=== PATIENT | female | born 1955 | race Caucasian/White ===

== ENCOUNTER 2018-12-28 05:54 | Day surgery (SDC) | payer BC ==
--- NOTE | 2018-12-25 10:26 | RAD REPORT ---
EXAM DESCRIPTION: RAD - Chest Pa And Lat (2 Views) - 12/25/2018 10:13 am CLINICAL HISTORY: Preop chest, pending breast lumpectomy COMPARISON: None. TECHNIQUE: PA and lateral views of the chest were obtained. FINDINGS: The lungs are clear. Heart size is normal and central vasculature is within normal limit s. No pleural effusion or pneumothorax seen. No acute bone findings. Endplate spurs are present thr oughout the thoracic spine. Several mid and lower thoracic disc levels show loss in height. Scoliotic curvature in the spine is present but not fully assessed. No aortic abnormality. IMPRESSION: No acute cardiopulmonary process. Prominent thoracic spine degenerative change.
[2018-12-25 10:42] LABS: Absolute Lymphocytes (CBC) 1.3 K/uL (0.7-4.9); Eosinophils % 12.2 % (0-4.4); Hematocrit 43.6 % (36.0-45.0); Lymphocytes % 21.5 % (15.3-44.8); MPV 7.1 fL (7.6-11.3); Monocytes % 8.1 % (3.3-12.3); RBC Red Blood Cell Count 4.38 M/uL (3.86-4.86)
[2018-12-25 11:15] LABS: Potassium 5.4 mmol/L (3.5-5.1)
--- NOTE | 2018-12-25 14:01 | EKG ---
Test Date: 2018-12-25 Test Time: 09:55:57 Die Welder: EULOGIO MEASUREMENT RESULTS: Intervals: Rate: 65 DE: 144 QRSD: 84 QT: 422 QTc: 438 [place]: P: 48 DE: 144 QRS: 3 T: 47 INTERPRETIVE STATEMENTS: Normal sinus rhythm Low voltage QRS Borderline ECG No previous ECG available for comparison Electronically Signed On 12-25-18 14:01:15 CDT by Ramesh Lucas
--- OUTSIDE RECORDS SUMMARY | 2018-12-28 05:59 | XMS REPORT | Clinical Summary ---
:1955 Author Organization [facility] Address [address] [place] [address] Care Team Providers Name Role Phone Cora Seals MD Primary Care Provider Allergies No Known Allergies Medications Medication Sig Dispensed Refills Start Date End Date Status levothyroxine Take 112 mcg by 0 Active (SYNTHROID, LEVOXYL) mouth every 112 mcg tablet morning. omeprazole (PriLOSEC) Take 20 mg by 0 Active 20 MG capsule mouth daily. sucralfate (CARAFATE) 1 Take 1 g by mouth 0 Active gram tablet 2 (two) times a day. estradiol (ESTRACE) APPLY THREE TIMES 42.5 g 2 11/13/2017 Active 0.01 % (0.1 mg/gram) A WEEK AT vaginal cream NGHT,USE FINGER TO APPLY DIRECTLY TO URETHRA, DO NOT USE APPLICATOR. 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 Last Filed Vital Signs Not on file Plan of Treatment Health Maintenance Due Date Last Done Comments BREAST CANCER SCREENING 2007 COLONOSCOPY SCREENING 2007 SHINGLES VACCINES (#1) 2007 INFLUENZA VACCINE 02/11/2019 Results Not on fileafter 12/27/2017 Advance Directives Patient has advance care planning documents on file. For more information, please contact:Bertin Benitez[address] [place] [address]
--- OUTSIDE RECORDS SUMMARY | 2018-12-28 05:59 | XMS REPORT ---
:1955 Author Organization [facility] Address [address] [place] [address] [address] [place] [address] Care Team Providers Name Role Phone Unavailable Unavailable Unavailable Payers Payer Name Policy Type Policy Number Effective Date Expiration Date Problems This patient has no known problems. Allergies, Adverse Reactions, Alerts Allergy Allergy Status Severity Reaction(s) Onset Inactive Treating Comments Name Type Date Date Clinician No Known DA Active U 2013-10 Allergies -11 00:00:0 0 Medications This patient has no known medications. Results Test Description Test Time Test Comments Text Results Atomic Results Result Comments SURGICAL 2018-12-01 RUN DATE: SPECIMENS 07:43:00 12/01/18 [facility] *LIVE* PAGE 1 RUN TIME: 742 Specimen Inquiry RUN USER: INTERFACE PATIENT: MARCK LYLE LOC: ARMANDO U #: [id number] AGE/SX: 63/F ROOM: RE11/25/18[facility] DR: Cora Seals MD : 59 BED: DIS: STATUS: PRE REF TLOC: SPEC #: [id number] RECD: 11/26/18 STATUS: UNRULY REQ # : [id number] SARITA: 11/26/[address]: Cora Seals MD ENTERED: 11/28/18 SP TYPE: SURG SPEC OTHR DR: No Primary or Family PhysicianORDERED: LEVEL 4 CODES: [id number] - BREAST, NOS COPIES TO: No Primary or Family Physician Cora Seals MD [address] [place] [address] [email or web address] PROCEDURES: GM LEVEL 4 (Incomplete) TISSUES: 1. BREAST, NOS - Breast, left, 3:00, 6 cm FN, core bx. FINAL DIAGNOSIS Breast, left, 3:00, 6 cm FN, core bx.: Infiltrating ductal carcinoma, Roderick grade 2, 0.8 cm; cribriform ductal carcinoma in situ, intermediate nuclear grade; ancillary studies to follow (report to follow). GROSS AND MICROSCOPIC GROSS EXAMINATION: Received is/are the specimen/s designated with the appropriate dimensions and block designation: 1. Breast, left, 3:00, 6 cm FN, core bx.: 4 segments of pink-avila tissue, measuring up to 1.5 cm. in greatest dimension each. MICROSCOPIC EXAMINATION: The biopsy reveals infiltrating ductal carcinoma that is characterized by infiltrating nests, cords, and atypical tubular structures in a background of desmoplastic response. The neoplastic cells show moderate nuclear atypia and increased mitoses. Also present are small foci of cribriform ductal carcinoma in situ. CONTINUED ON NEXT PAGE RUN DATE: 12/01/18 [facility] *LIVE* PAGE 2 RUN TIME: 742 Specimen Inquiry RUN USER: INTERFACE SPEC #: [id number] PATIENT: AMRCK LYLEL #[id number] (Continued) POST-OP DIAGNOSIS Ultraclip coil PRE-OP DIAGNOSIS Malignant appearing mass 3:00 left breast REVIEWED BY: MR Signed SIGNATURE ON FILE Carl Allison MD 12/01/18 0743 END OF REPORT SURGICAL 2018-12-01 RUN DATE: SPECIMENS 07:43:00 12/04/18 [facility] *LIVE* PAGE 1 RUN TIME: 834 Specimen Inquiry RUN USER: INTERFACE PATIENT: MARCK LYLE LOC: ARMANDO #: [id number] AGE/SX: 63/F ROOM: RE11/25/18[facility] DR: Cora Seals MD : 59 BED: DIS: STATUS: PRE REF TLOC: SPEC #: [id number] RECD: 11/26/18 STATUS: UNRULY ARTEAGA # : [id number] SARITA: 11/26/18 [facility] DR: Cora Seals MD ENTERED: 11/28/18 SP TYPE: SURG SPEC OTHR DR: No Primary or Family PhysicianORDERED: GM LEVEL 4 CODES: [id number] - BREAST, NOS COPIES TO: No Primary or Family Physician Cora Seals MD [address] [place] [address] [email or web address] PROCEDURES: GM LEVEL 4 (Incomplete) TISSUES: 1. BREAST, NOS - Breast, left, 3:00, 6 cm FN, core bx. ADDENDUM FINDINGS Addendum #1 Entered: 12/03/18 ER: POSITIVE Tumor Stained: 92% Intensity: 3+ Jair Score: 8 MI: POSITIVE Tumor Stained: 100% Intensity: 3+ Jair Score: 8 Her2/luke: EQUIVOCAL Score: 2+ FISH is pending. Ki-67: LOW Tumor Stained: 8% Intensity: 3+ p53: NEGATIVE Tumor Stained: 0% Intensity: 0 REFERENCE RANGES: ER > 1%-Positive; < 1%-Negative. MI > 1%-Positive; < 1%-Negative. Ki-67 < 10%-Low proliferative index; >=10% and <=20%-Intermediate proliferative index; > 20%-High proliferative index. p53 < 10%-Negative; >=10%-Positive. Her2/luke 2-1-Uurrhhbf; 8-ovpmjyupy-whfnxm FISH study; 3+-Positive. These tests were performed by IHC in conjunction with the [employer]/APERIPromiseUP. The material was formalin fixed (6-72 hours), paraffin embedded. While some antibodies have not been approved by the FDA, clearance/approval is not mandated. These antibodies are well documented and clinically accepted prognostic indicators. Known positive and negative CONTINUED ON NEXT PAGE RUN DATE: 12/04/18 [facility] *LIVE* PAGE 2 RUN TIME: 834 Specimen Inquiry RUN USER: INTERFACE SPEC #: [id number] PATIENT: MARCK LYLE #[id number] (Continued) ADDENDUM FINDINGS (Continued) control tissue shows appropriate staining. Above prognostic marker results to be used in context with clinical/ pathological findings. The College [employer] [place] [employer] (CAP) and the [place] Society of Clinical Oncology (ASCO) joint guideline on testing for Her2/Luke status in invasive breast cancer is used to determine if FISH studies are necessary. Please see outside consultation report for clone/ intended use, vendor, staining pattern, and QC status. Addendum Signed SIGNATURE ON FILE Jermaine Escoto DO 12/04/18 0835 FINAL DIAGNOSIS Breast, left, 3:00, 6 cm FN, core bx.: Infiltrating ductal carcinoma, Roderick grade 2, 0.8 cm; cribriform ductal carcinoma in situ, intermediate nuclear grade; ancillary studies to follow (report to follow). GROSS AND MICROSCOPIC GROSS EXAMINATION: Received is/are the specimen/s designated with the appropriate dimensions and block designation: 1. Breast, left, 3:00, 6 cm FN, core bx.: 4 segments of pink-avila tissue, measuring up to 1.5 cm. in greatest dimension each. MICROSCOPIC EXAMINATION: The biopsy reveals infiltrating ductal carcinoma that is characterized by infiltrating nests, cords, and atypical tubular structures in a background of desmoplastic response. The neoplastic cells show moderate nuclear atypia and increased mitoses. Also present are small foci of cribriform ductal carcinoma in situ. POST-OP DIAGNOSIS Ultraclip coil PRE-OP DIAGNOSIS Malignant appearing mass 3:00 left breast REVIEWED BY: MR CONTINUED ON NEXT PAGE RUN DATE: 12/04/18 [facility] *LIVE* PAGE 3 RUN TIME: 08 Specimen Inquiry RUN USER: INTERFACE SPEC #: [id number] PATIENT: MARCK LYLEL #[id number] (Continued) Signed SIGNATURE ON FILE Carl Allison MD 12/01/18 0743 END OF REPORT SURGICAL 2018-12-01 RUN DATE: SPECIMENS 07:43:00 12/10/18 [facility] *LIVE* PAGE 1 RUN TIME: 806 Specimen Inquiry RUN USER: INTERFACE PATIENT: MARCK LYLE LOC: SteveHELENE U #: [id number] AGE/SX: 63/F ROOM: RE11/25/18REG DR: Cora Seals MD : 59 BED: DIS: STATUS: DEP REF TLOC: SPEC #: [id number] RECD: 11/26/18 STATUS: UNRULY ARTEAGA # : [id number] SARITA: 11/26/[address]: Cora Seals MD ENTERED: 11/28/18 SP TYPE: SURG SPEC OTHR DR: No Primary or Family PhysicianORDERED: GM LEVEL 4 CODES: [id number] - BREAST, NOS COPIES TO: No Primary or Family Physician Cora Seals MD [address] [place], [place] [id number] [email or web address] PROCEDURES: GM LEVEL 4 (Incomplete) TISSUES: 1. BREAST, NOS - Breast, left, 3:00, 6 cm FN, core bx. ADDENDUM FINDINGS Addendum #2 Entered: 12/09/18 Her2/luke by FISH is negative (unamplified). Please see attached outside consultation report for complete details. Addendum Signed SIGNATURE ON FILE Carl Allison MD 12/10/18 0807 Addendum #1 Entered: 12/03/183414 ER: POSITIVE Tumor Stained: 92% Intensity: 3+ Jair Score: 8 MI: POSITIVE Tumor Stained: 100% Intensity: 3+ Jair Score: 8 Her2/luke: EQUIVOCAL Score: 2+ FISH is pending. Ki-67: LOW Tumor Stained: 8% Intensity: 3+ p53: NEGATIVE Tumor Stained: 0% Intensity : 0 REFERENCE RANGES: ER > 1%-Positive; < 1%-Negative. MI > 1%-Positive; < CONTINUED ON NEXT PAGE RUN DATE: 12/10/18 [facility] *LIVE* PAGE 2 RUN TIME: 806 Specimen Inquiry RUN USER: INTERFACE SPEC #: [id number] PATIENT: MARCK LYLE #[id number] (Continued) ADDENDUM FINDINGS (Continued) 1%-Negative. Ki-67 < 10%- Low proliferative index; >=10% and <=20%-Intermediate proliferative index; > 20%-High proliferative index. p53 < 10%-Negative; >=10%-Positive. Her2/luke 4-0-Tmuodsmz; 8-sumsebbbp-gsxtva FISH study; 3+-Positive. These tests were performed by IHC in conjunction with the [employer]/APERIO. The material was formalin fixed (6-72 hours), paraffin embedded. While some antibodies have not been approved by the FDA, clearance/approval is not mandated. These antibodies are well documented and clinically accepted prognostic indicators. Known positive and negative control tissue shows appropriate staining. Above prognostic marker results to be used in context with clinical/pathological findings. The [employer] [place] [employer]ologists (CAP) and the [place] Society of Clinical Oncology (ASCO) joint guideline on testing for Her2/Luke status in invasive breast cancer is used to determine if FISH studies are necessary. Please see outside consultation report for clone/intended use, vendor, staining pattern, and QC status. Addendum Signed SIGNATURE ON FILE Jermaine Escoto 0835 FINAL DIAGNOSIS Breast, left, 3:00, 6 cm FN, core bx.: Infiltrating ductal carcinoma, [place] grade 2, 0.8 cm; cribriform ductal carcinoma in situ, intermediate nuclear grade; ancillary studies to follow (report to follow). GROSS AND MICROSCOPIC GROSS EXAMINATION: Received is/are the specimen/s designated with the appropriate dimensions and block designation: 1. Breast, left, 3:00, 6 cm FN, core bx.: 4 segments of pink-avila tissue, measuring up to 1.5 cm. in greatest dimension each. MICROSCOPIC EXAMINATION: The biopsy reveals infiltrating ductal carcinoma that is characterized by infiltrating nests, cords, and atypical tubular structures in a background of desmoplastic response. The neoplastic cells show moderate nuclear atypia and increased mitoses. Also present are small foci of cribriform ductal carcinoma in situ. CONTINUED ON NEXT PAGE RUN DATE: 12/10/18 [facility] *LIVE* PAGE 3 RUN TIME: 806 Specimen Inquiry RUN USER: INTERFACE SPEC #: [id number] PATIENT: MARCK LYLE #[id number] (Continued) POST-OP DIAGNOSIS Ultraclip coil PRE-OP DIAGNOSIS Malignant appearing mass 3:00 left breast REVIEWED BY: MR Signed SIGNATURE ON FILE Carl Allison MD 12/01/18 0743 END OF REPORT
[2018-12-28] MEDS ORDERED: Ringers Lactate 1,000 ML IV ONE ×2 (06:18→10:51)
[2018-12-28] MEDS ORDERED: PROPOFOL 200 MG/20 ML VIAL IV ONE (08:06)
[2018-12-28] MEDS ORDERED: MIDAZOLAM HCL 2 MG/2 ML INJ ONE (08:07)
[2018-12-28] MEDS ORDERED: GLYCOPYRROLATE 0.2 MG/ML SYR ONE ×2 (08:07→08:08)
[2018-12-28] MEDS ORDERED: LIDOCAINE 2% MPF 5 ML VIAL ONE (08:08)
[2018-12-28] MEDS ORDERED: METHYLENE BLUE 0.5% 10 ML AMP ONE (08:09)
[2018-12-28] MEDS ORDERED: FENTANYL CITR 250 MCG/5 ML ONE (08:09)
[2018-12-28] MEDS ORDERED: ONDANSETRON 4 MG/2 ML VIAL ONE (08:11)
[2018-12-28] MEDS ORDERED: NEOSTIGMINE 1 MG/ML -10 ML VIAL ONE ×2 (08:14→09:48)
[2018-12-28] MEDS ORDERED: ROCURONIUM 50 MG/5 ML VIAL IV ONE (08:14)
[2018-12-28] MEDS: CEFAZOLIN SODIUM 1 GM/VIAL ONE ×2 (09:20→09:30)
[2018-12-28] MEDS ORDERED: DEXAMETHASONE 10 MG/ML VIAL ONE (09:48)
[2018-12-28] MEDS ORDERED: Phenylephrine HCl 10 MG/ML 1 ML VIAL ONE ×2 (10:15→10:16)
[2018-12-28] MEDS ORDERED: NS 0.9% VIAL 0 ML ONE (10:16)
[2018-12-28] MEDS ORDERED: NS 0.9% VIAL 20 ML ONE (10:17)
[2018-12-28] MEDS ORDERED: EPHEDRINE SULF 50 MG/ML VIAL ONE (10:49)
--- NOTE | 2018-12-28 10:52 | P.BOP ---
Preoperative diagnosis: Invasive ductal carcinoma Postoperative diagnosis: same Primary procedure: Left breast lumpectomy needle localized, Secondary procedure: Axillary lymphnode biospy Car Conditioner: Nuris Cagle (Ivette) Estimated blood loss: <10cc Specimen: lumpectomy with intact needle. Findings: lesion within the specimen by Dr Jackson, sentinel neg by Dr Paredes Anesthesia: General Complications: None Transferred to: Recovery Room Condition: Good
[2018-12-28] MEDS: MEPERIDINE HCL 50 MG/ML AMP ONE ×4 (11:37→11:46)
--- NOTE | 2018-12-28 11:45 | RAD REPORT ---
EXAM DESCRIPTION: NM - Lymphoscintigraphy - 12/28/2018 8:14 am CLINICAL HISTORY: Breast cancer COMPARISON: None. TECHNIQUE: Four injections of 0.01 millicuries technetium filtered sulfur colloid administered into the the kamille arerolar region of the left breast. The injections were placed at Twelve o'clock, 3 o'cl ock, 6 o'clock and 9 o'clock positions. Subsequently a scintigram was obtained which demonstrated the radiotracer within these locations. IMPRESSION: Right breast lymphoscintigram
--- NOTE | 2018-12-28 11:46 | RAD REPORT ---
EXAM DESCRIPTION: US - Brst,Preop NL Wire Init w/Guid - 12/28/2018 8:40 am CLINICAL HISTORY: Breast cancer COMPARISON: Not available FINDINGS: 9 millimeter mass within the outer left breast was localized under ultrasound Skin and subcutaneous tissues anesthetized with lidocaine. Under sonographic guidance, Kopan's hook w jose was placed into the mass. The patient then left for the operating room IMPRESSION: Ultrasound-guided needle wire localization of a left breast mass
--- NOTE | 2018-12-28 12:26 | RAD REPORT ---
EXAM DESCRIPTION: US - Surgical Specimen - 12/28/2018 10:49 am CLINICAL HISTORY: Breast cancer FINDINGS: Ultrasound of the resected left breast tissue was obtained. The hypoechoic mass and localizing clip lie within the resected specimen
[2018-12-28] MEDS ORDERED: HYDROCODONE/APAP 10/325 TAB ONE (12:54)
--- NOTE | 2019-01-06 00:48 | OP ---
Surgeon: Lui Lopez MD Diagnosis: Invasive ductal carcinoma. Procedures: Left breast lumpectomy, needle localized, with axillary lymph node biopsy. Disposition: Home. Activity: As tolerated. No heavy lifting. Followup: Follow up in my office in 1 week, call for appointment [phone]. The patient also advised to follow up with her radiation oncology doctor since she will receive radiation and then also with her oncologist to finally stage her and see if she needs chemotherapy or not. She understood. Medications: For medications, see orders. KEVIN/JENNIFER Voice ID: [id number] Report ID: [id number]
--- NOTE | 2019-01-06 01:19 | OP ---
Date of Procedure: 12/27/2018 Surgeon: Lui Lopez MD Due Diligence Coordinator: CATE Zhao. Preoperative Diagnosis: Invasive ductal carcinoma, left breast. Postoperative Diagnosis: Invasive ductal carcinoma, left breast. Procedures: Left breast lumpectomy, needle localized, with axillary lymph node sentinel biopsy. Specimen: Lumpectomy with intact needles and also sentinel lymph node sent to Dr. Paredes who confirmed n egative sentinel lymph nodes and also a lesion with specimen by Dr. Pulliam. Indications: This is the case of a 63-year-old patient, who comes to us with left breast cancer. Mckinley llmabel explained the need for lump removal. She was explained breast conservative treatment versus mast ectomy. She has elected breast conservative treatment with the choice of left breast lumpectomy with a sentinel lymph node biopsy, possible axillary dissection with benefits, alternatives, and risks in cluding but not limited to infection, bleeding, damage to adjacent structures, anesthesia complicatio n, recurrence, flap failure, [place], even . She also understands this might not relieve any symptom s and she might need more than one surgical intervention. She also understands sensory and motor def icits and chronic pain. She fully understands that if she goes for lumpectomy route, most likely she will require a radiation therapy, but the chemotherapy will be decided by the oncologist once the ar ea and the final stage is done. She understands and signed a consent. Description Of Procedure: She went this morning for 2 procedures by the radiologist; one of them is the lymphatic mapping and then second one also for needle localization of the lesion in question. On ce she had both of them done and with proper time wait, we proceeded to bring the patient to the OR r oom. Placed her in supine position. A time-out was called. Anesthesia was done without complicatio n. Left breast and axillary area were prepped and draped in a sterile fashion. An incision was made over the axillary region and below the axillary hairline. Before that, we used a gamma probe to hav e a gamma count on the area, and we continued that with the gamma count during the surgery with the n umbers prescribed as follows: In the left axillary basin, we have gamma count of 207 skin, in-vivo t o 29, ex-vivo 217, ex-vivo 10 seconds 220, background 0, blue lymph node yes. We obtained count on t he area of the axilla and removed the sentinel lymph node and sent it to the pathologist. We also no ticed there is some lymph node nearby, a little bit inflamed, needed to be removed since it looks abn ormal, and sent that specimen to the Pathology too. The pathology came back as sentinel lymph node n egative for cancer. We checked the area with a gamma probe. No other lymph node with counts in that area. Once again, referred to the intraoperative lymphatic mapping for details on the numbers. We irrigated the area and then proceeded to close the area with a 3-0 chromic and absorbable stitches. At that moment, we went to the area of the axilla for the lumpectomy. We made an incision. The wire was preserved at all times. The incision was made all the way down. Then the tissue around the are a over the wire was pointing and was removed. Some tissue that is in the area was also removed with the specimen since it looked like it also sounds cystic disease over that area. We send hard specime n to the pathologist who confirmed gross negative margins and, then after that, we proceeded to close the area with 3-0 chromic and 4-0 PDS after hemostasis and irrigation was done. We also had local a nesthetic at the beginning. The patient tolerated each procedure well. The patient was sent to [facility] in stable condition. Sponge count and instrument counts were correct. KEVIN/JENNIFER Voice ID: [id number] Report ID: [id number]
== END 2018-12-28 13:50 | disposition home or self-care (01) ==
LOC: OR 05:54
PROVIDERS: ATTEND Surgery
PROC: 0HBU0ZX Excision of Left Breast, Open Approach, Diagnostic (ICD-10-PCS; principal; 2018-12-28 08:30)
PROC: 07B60ZX Excision of Left Axillary Lymphatic, Open Approach, Diagnostic (ICD-10-PCS; 2018-12-28 08:30)
DX: C50.912 Malignant neoplasm of unspecified site of left female breast (principal); Z17.0 Estrogen receptor positive status [ER+]; N60.92 Unspecified benign mammary dysplasia of left breast; N60.42 Mammary duct ectasia of left breast
CPT/HCPCS: 19285; 36415; 71046; 76098; 78195; 80048; 84132; 85025; 88305; 88307; 88333; 88334; 93005; A9541; J0690; J1100; J2175; J2250; J2370; J2405; J2704; J2710; J3010